=== PATIENT | male | born 1950 | race American Indian/Alaskan Native ===

== ENCOUNTER 2019-05-12 02:52 | Emergency (ER) | payer MEDICARE ==
[2019-05-12 03:04] VITALS: BP 159/78
== END 2019-05-12 05:30 | disposition left against medical advice (07) ==
LOC: ED 02:52
DX: J02.9 Acute pharyngitis, unspecified (principal); Z53.21 Procedure and treatment not carried out due to patient leaving prior to being seen by health care provider

== ENCOUNTER 2020-02-27 23:25 | Emergency (ER) | payer MEDICARE ==
[2020-02-27 23:36] VITALS: BP 160/84
== END 2020-02-28 01:30 | disposition left against medical advice (07) ==
LOC: ED 23:25
DX: K92.1 Melena (principal); R31.9 Hematuria, unspecified; Z53.21 Procedure and treatment not carried out due to patient leaving prior to being seen by health care provider

== ENCOUNTER 2020-03-21 21:42 | Emergency (ER) | payer MEDICARE ==
[2020-03-22 00:37] LABS: Hematocrit 46.8 % (35.5-45.6); Hemoglobin 15.8 gm/dl (11.8-15.2); Mean Corpuscular HGB Conc 34 % (32-34); Mean Corpuscular Volume 95 fl (84-94); Platelet Count 215 K/mm3 (140-440); Red Blood Count 4.91 M/mm3 (3.65-5.03); Red Cell Distribution Width 14.3 % (13.2-15.2)
[2020-03-22 00:56] LABS: Alanine Aminotransferase 20 units/L (7-56); Albumin 4.6 g/dL (3.9-5); BUN/Creatinine Ratio 15; Blood Urea Nitrogen 12 mg/dL (9-20); Calcium 9.8 mg/dL (8.4-10.2); Hemolysis Index 3
--- NOTE | 2020-03-22 01:27 | Emergency Department Report ---
ED Dizziness HPI - General Chief Complaint: Dizziness Stated Complaint: DIZZY Time Seen by Provider: 03/22/20 01:15 Source: patient Mode of arrival: Ambulatory Limitations: No Limitations - History of Present Illness Initial Comments: Patient is a 69-year-old male that presents emergency room with complaints of dizziness x1 month. Patient states his symptoms are intermittent. Patient states that it comes once or twice a day. Patient denies any symptoms at this time. Patient states his symptoms are better with rest and worse with exertion and movement. Patient denies chest pain or shortness of breath. Patient denies syncopal episode. Patient states that he has an appointment in April with his primary care. Patient dates he has history of high blood pressure. Patient states he takes his lisinopril every morning. Patient states his blood pressure goes up after he eats salt. Patient states he does not check his blood pressure at home. Patient denies recent travel. Patient denies recent international travel. Patient denies exposure to the novel coronavirus. Patient denies sick contacts. Patient denies fever and chills. Patient denies cough. Patient denies diarrhea. Patient denies coming in contact with anybody with symptoms of the novel coronavirus. MD Complaint: dizziness -: Sudden Timing: gradual onset Description: lightheadedness History of Same: Yes History of Trauma: No Severity: mild Improves With: remaining still, rest Worsens With: movement, exertion Associated Symptoms: denies other symptoms. denies: ataxia, chest pain, confusion, cough, diaphoresis, fever/chills, loss of appetite, malaise, rash, seizure, shortness of breath, syncope, weakness - Related Data Home Medications Medication Instructions Recorded Confirmed Last Taken AtorvaSTATin [Lipitor] 20 mg PO QHS 03/22/20 03/22/20 03/21/20 amLODIPine [Norvasc] 10 mg PO DAILY 03/22/20 03/22/20 03/21/20 lisinopriL [Zestril TAB] 40 mg PO QDAY 03/22/20 03/22/20 03/21/20 Previous Rx's Medication Instructions Recorded Last Taken Type hydroCHLOROthiazide [HCTZ] 25 mg PO QDAY 30 Days #30 tablet 03/22/20 Unknown Rx Allergies Allergy/AdvReac Type Severity Reaction Status Date / Time No Known Allergies Allergy Unverified 05/16/14 09:58 ED Review of Systems ROS: Stated complaint: DIZZY Other details as noted in HPI Constitutional: denies: chills, fever Eyes: denies: eye pain, eye discharge, vision change ENT: denies: ear pain, throat pain Respiratory: denies: cough, shortness of breath, wheezing Cardiovascular: denies: chest pain, palpitations Endocrine: no symptoms reported Gastrointestinal: denies: abdominal pain, nausea, diarrhea Genitourinary: denies: urgency, dysuria Musculoskeletal: denies: back pain, joint swelling, arthralgia Skin: denies: rash, lesions Neurological: denies: headache, weakness, paresthesias Psychiatric: denies: anxiety, depression Hematological/Lymphatic: denies: easy bleeding, easy bruising ED Past Medical Hx - Past Medical History Previous Medical History?: Yes Hx Hypertension: Yes Additional medical history: Hyperlipidemia - Surgical History Past Surgical History?: No - Social History Smoking Status: Former Smoker Substance Use Type: None - Medications Home Medications: Home Medications Medication Instructions Recorded Confirmed Last Taken Type AtorvaSTATin [Lipitor] 20 mg PO QHS 03/22/20 03/22/20 03/21/20 History amLODIPine [Norvasc] 10 mg PO DAILY 03/22/20 03/22/20 03/21/20 History hydroCHLOROthiazide [HCTZ] 25 mg PO QDAY 30 Days #30 tablet 03/22/20 Unknown Rx lisinopriL [Zestril TAB] 40 mg PO QDAY 03/22/20 03/22/20 03/21/20 History ED Physical Exam - General Limitations: No Limitations General appearance: alert, in no apparent distress - Head Head exam: Present: atraumatic, normocephalic - Eye Eye exam: Present: normal appearance, PERRL Pupils: Present: normal accommodation - ENT ENT exam: Present: mucous membranes moist - Neck Neck exam: Present: normal inspection - Respiratory Respiratory exam: Present: normal lung sounds bilaterally. Absent: respiratory distress - Cardiovascular Cardiovascular Exam: Present: regular rate, normal rhythm, normal heart sounds. Absent: systolic murmur, diastolic murmur, rubs, gallop - GI/Abdominal GI/Abdominal exam: Present: soft, normal bowel sounds - Rectal Rectal exam: Present: deferred - Extremities Exam Extremities exam: Present: normal inspection, full ROM, normal capillary refill. Absent: tenderness, pedal edema, calf tenderness - Back Exam Back exam: Present: normal inspection, full ROM - Neurological Exam Neurological exam: Present: alert, oriented X3, CN II-XII intact, normal gait. Absent: abnormal gait, motor sensory deficit - Psychiatric Psychiatric exam: Present: normal affect, normal mood - Skin Skin exam: Present: warm, dry, intact, normal color. Absent: rash ED Course Vital Signs 03/21/20 03/22/20 23:38 01:32 Temperature 98.4 F Pulse Rate 59 L 59 L Respiratory 18 Rate Blood Pressure 197/85 202/73 O2 Sat by Pulse 97 Oximetry - Reevaluation(s) Reevaluation #1: Initial evaluation done. Patient's on a manager scheduling and the patient's blood pressure is 200/70. Patient will be given 5 mg of Norvasc. Patient ambulatory in the ER without difficulty. 03/22/20 01:29 Reevaluation #2: The nurse went to give the patient the Norvasc and the patient states he actually takes lisinopril and Norvasc for his blood pressure. Norvasc canceled and will be given 0.2 mg of clonidine. Patient states he also takes atorvastatin for cholesterol. 03/22/20 01:36 Reevaluation #3: Patient's blood pressure is much better. Patient is ambulatory in ER. Patient states his dizziness has resolved. I discussed all results and clinical findings with patient. I discussed plan of care with patient. Patient agrees with plan of care. Patient is stable for discharge. Patient will be discharged home. Patient given discharge instructions. Patient voiced understanding of discharge instructions. 03/22/20 02:26 ED Medical Decision Making - Lab Data Result diagrams: 03/21/20 23:58 03/21/20 23:58 - EKG Data -: EKG Interpreted by Me EKG shows normal: sinus rhythm, axis, intervals, QRS complexes, ST-T waves Rate: bradycardia - Medical Decision Making Patient is a 69-year-old this emergency room with complaints of dizziness. Patient states it is intermittent and going on for 1 month. Patient found to have extreme elevated blood pressure. Patient's blood pressure was over 200. Patient given clonidine in his blood pressure improved dramatically. Patient already taking amlodipine and lisinopril as an outpatient. Patient's blood pressure responded well to treatment. Patient ambulatory and neurologically stable the entire time in the ER. Patient exam is benign. Patient had labs done which were essentially unremarkable. Patient given a prescription to be taken as an outpatient of hydrochlorothiazide 25 mg. Patient instructed to follow-up with his primary care soon as possible. Patient is stable for discharge. Patient discharged home. - Differential Diagnosis Hypertension, hypertensive urgency, uncontrolled blood pressure, dizziness Critical Care Time: Yes Critical care time in (mins) excluding proc time.: 35 Critical care attestation.: If time is entered above; I have spent that time in minutes in the direct care of this critically ill patient, excluding procedure time. Critical Care Time: 35 minutes. ED Disposition Clinical Impression: Hypertensive urgency, Dizziness Hypertension Qualifiers: Hypertension type: essential hypertension Qualified Code(s): I10 - Essential (primary) hypertension Disposition: TO HOME OR SELFCARE Is pt being admited?: No Does the pt Need Aspirin: No Condition: Stable Instructions: Hypertension (ED), Hypertension, Adult, [id number], Dizziness, [id number], Managing Your Hypertension Additional Instructions: Patient to follow-up with primary care in 2 to 3 days. 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 Patient to eat a low-salt diet. Patient to eat a heart healthy diet. Patient to monitor blood pressure at home. Patient to keep a blood pressure log. Patient to take blood pressure log to all follow-up appointments. Patient to continue amlodipine and lisinopril and atorvastatin. Patient to rest. Patient to increase water. Patient to avoid strenuous exercise or heavy lifting until cleared by [employer] and neurologist. Patient to take meds as directed. Patient to return to the ER if condition worsens, changes or new symptoms arise. Prescriptions: hydroCHLOROthiazide [HCTZ] 25 mg PO QDAY 30 Days #30 tablet Referrals: FAUSTO BALLESTEROS DO [Primary Care Provider] - 2-3 Days Time of Disposition: 02:48
[2020-03-22] MEDS: amLODIPine 5 MG TAB PO ONE ×2 (01:32→01:38)
[2020-03-22] MEDS ORDERED: cloNIDine 0.2 MG TAB PO ONE (01:36)
[2020-03-22 03:02] VITALS: BP 163/76
[2020-03-22 03:10] LABS: Total Cells Counted 100
[2020-03-22 03:11] LABS: Anisocytosis 1+; Platelet Estimate Consistent w Auto
== END 2020-03-22 02:55 | disposition home or self-care (01) ==
LOC: ED 21:42
DX: I16.0 Hypertensive urgency (principal); E78.49 Other hyperlipidemia
CPT/HCPCS: 36415; 80053; 85007; 85025; 93005

== ENCOUNTER 2020-03-25 08:15 | Emergency (ER) | payer MEDICARE ==
[2020-03-25 08:21] VITALS: BP 149/76
[2020-03-25 09:28] LABS: Hematocrit 44.4 % (35.5-45.6); Mean Corpuscular HGB Conc 34 % (32-34); Mean Corpuscular Volume 95 fl (84-94); Platelet Count 229 K/mm3 (140-440); Red Cell Distribution Width 14.2 % (13.2-15.2)
[2020-03-25 09:45] LABS: BUN/Creatinine Ratio 14; Blood Urea Nitrogen 13 mg/dL (9-20); Calcium 9.5 mg/dL (8.4-10.2); Hemolysis Index 3
[2020-03-25 11:34] LABS: Total Cells Counted 100
[2020-03-25 11:35] LABS: Platelet Estimate Consistent w Auto; RBC Morphology Normal
== END 2020-03-25 18:45 ==
LOC: ED 08:15
DX: R42 Dizziness and giddiness (principal); Z53.21 Procedure and treatment not carried out due to patient leaving prior to being seen by health care provider
CPT/HCPCS: 36415; 80048; 82962; 85007; 85025

== ENCOUNTER 2020-03-27 09:21 | Emergency (ER) | payer MEDICARE ==
[2020-03-27 10:34] LABS: Bilirubin,Urine NEG (Negative); Blood,Urine LG (Negative); Color,Urine Yellow (Yellow); Hyaline Casts,Urine 3 /LPF; Mucus,Urine FEW /HPF; Urobilinogen,Urine < 2.0 mg/dL (<2.0)
[2020-03-27 10:39] LABS: RBC,Urine > 182.0 /HPF (0.0-6.0)
[2020-03-27 10:41] LABS: Hemoglobin 15.5 gm/dl (11.8-15.2); Mean Corpuscular HGB Conc 34 % (32-34); Mean Corpuscular Volume 95 fl (84-94); Platelet Count 217 K/mm3 (140-440); Red Blood Count 4.84 M/mm3 (3.65-5.03); Red Cell Distribution Width 14.3 % (13.2-15.2)
[2020-03-27 11:08] LABS: BUN/Creatinine Ratio 12; Blood Urea Nitrogen 13 mg/dL (9-20); Calcium 9.7 mg/dL (8.4-10.2); Hemolysis Index 8
[2020-03-27 16:11] VITALS: BP 138/76
[2020-03-28] MEDS ORDERED: ACETAMINOPHEN 325 MG TAB PO ONE (00:07)
--- NOTE | 2020-03-28 00:08 | Emergency Department Report ---
ED General Adult HPI - General Chief complaint: Urogenital-Male Stated complaint: urinating blooad PUI?: Yes Time Seen by Provider: 03/27/20 23:34 Source: patient, RN notes reviewed, old records reviewed Mode of arrival: Ambulatory Limitations: No Limitations - History of Present Illness Initial comments: The patient was evaluated in the emergency department for symptoms described in the history of present illness. He/she was evaluated in the context of the global COVID-19 pandemic, which necessitated consideration that the patient might be at risk for infection with the virus that causes COVID-19. Institutional protocols and algorithms that pertain to the evaluation of patients at risk for COVID-19 are in a state of rapid change based on information released by regulatory bodies including the CDC and federal and sta te organizations. These policies and algorithms were followed during the patient's care in the emergency department. Please note that these policies, procedures and recommendations changed on a rapid basis. Patient is a pleasant 69-year-old gentleman with a history of obesity hypertension and high cholesterol, who presents to the ER today with a complaint of nontraumatic bloody urine, and left flank pain, present for approximately 1 day. He denies headache, neck pain, chest pain, vomiting, hematemesis and bright red blood per rectum, dysuria, testicular pain. He does not smoke, has not traveled to [place], or [place], and has not been exposed to aniline blue dye. He denies Covid symptomatology. Abdominal pain is throbbing and aching, dull, left flank. It does not radiate anywhere, increases with palpation, decreases with rest and position. -: Gradual, days(s) Location: abdomen Radiation: non-radiation Quality: other Consistency: other Improves with: other Worsens with: other Associated Symptoms: denies other symptoms - Related Data Home Medications Medication Instructions Recorded Confirmed Last Taken AtorvaSTATin [Lipitor] 20 mg PO QHS 03/22/20 03/22/20 03/21/20 amLODIPine [Norvasc] 10 mg PO DAILY 03/22/20 03/22/20 03/21/20 lisinopriL [Zestril TAB] 40 mg PO QDAY 03/22/20 03/22/20 03/21/20 Previous Rx's Medication Instructions Recorded Last Taken Type hydroCHLOROthiazide [HCTZ] 25 mg PO QDAY 30 Days #30 tablet 03/22/20 Unknown Rx Acetaminophen [Non-Aspirin Extra 500 mg PO Q6HR PRN #30 tablet 03/28/20 Unknown Rx Strength] Ibuprofen [Motrin] 600 mg PO Q8H PRN #30 tablet 03/28/20 Unknown Rx Morphine Sulfate [Morphine Sulfate 7.5 mg PO Q6HR PRN #10 tablet 03/28/20 Unknow n Rx IR] Allergies Allergy/AdvReac Type Severity Reaction Status Date / Time No Known Allergies Allergy Unverified 05/16/14 09:58 ED Review of Systems ROS: Stated complaint: RECTAL BLEEDING Other details as noted in HPI Comment: All other systems reviewed and negative Gastrointestinal: abdominal pain Genitourinary: hematuria. denies: testicular pain, testicular mass Musculoskeletal: denies: back pain ED Past Medical Hx - Past Medical History Hx Hypertension: Yes Additional medical history: Hyperlipidemia - Surgical History Past Surgical History?: No - Social History Smoking Status: Never Smoker - Medications Home Medications: Home Medications Medication Instructions Recorded Confirmed Last Taken Type AtorvaSTATin [Lipitor] 20 mg PO QHS 03/22/20 03/22/20 03/21/20 History amLODIPine [Norvasc] 10 mg PO DAILY 03/22/20 03/22/20 03/21/20 History hydroCHLOROthiazide [HCTZ] 25 mg PO QDAY 30 Days #30 tablet 03/22/20 Unknown Rx lisinopriL [Zestril TAB] 40 mg PO QDAY 03/22/20 03/22/20 03/21/20 History Acetaminophen [Non-Aspirin Extra 500 mg PO Q6HR PRN #30 tablet 03/28/20 Unknown Rx Strength] Ibuprofen [Motrin] 600 mg PO Q8H PRN #30 tablet 03/28/20 Unknown Rx Morphine Sulfate [Morphine Sulfate 7.5 mg PO Q6HR PRN #10 tablet 03/28/20 Unknown Rx IR] ED Physical Exam - General Limitations: No Limitations General appearance: alert, in no apparent distress - Head Head exam: Present: atraumatic, normocephalic - Eye Eye exam: Present: normal appearance, EOMI. Absent: nystagmus - ENT ENT exam: Present: normal exam, normal orophraynx, mucous membranes moist, normal external ear exam - Neck Neck exam: Present: normal inspection, full ROM. Absent: tenderness, meningismus - Respiratory Respiratory exam: Present: normal lung sounds bilaterally. Absent: respiratory distress, wheezes, rales, rhonchi, stridor, decreased breath sounds - Cardiovascular Cardiovascular Exam: Present: regular rate, normal rhythm, normal heart sounds. Absent: bradycardia, tachycardia, irregular rhythm, systolic murmur, diastolic murmur, rubs, gallop - GI/Abdominal GI/Abdominal exam: Present: soft, tenderness, normal bowel sounds, other (There is left upper quadrant/left flank/left lower quadrant tenderness with deep palpation.). Absent: distended, guarding, rebound, rigid, pulsatile mass - Rectal Rectal exam: Present: deferred - exam: Present: normal inspection, other (There is normal testicular lie. There is normal cremasteric reflex. There is no testicular tenderness. There is no testicular swelling). Absent: testicular tenderness, circumcision (Patient uncircumcised, foreskin retracts easily) External exam: Present: normal external exam - Extremities Exam Extremities exam: Present: normal inspection, full ROM, other (2+ pulses noted in the bilateral upper and lower extremities. There is no palpable cord. negative Homans sign. Muscular compartments are soft. The pelvis is stable.). Absent: tenderness, joint swelling, calf tenderness - Back Exam Back exam: Present: normal inspection, full ROM. Absent: tenderness, CVA tenderness (R), CVA tenderness (L), paraspinal tenderness, vertebral tenderness - Neurological Exam Neurological exam: Present: alert, normal gait, other (No facial droop. Tongue midline. Extraocular movements intact bilaterally. Facial sensation intact to light touch in V1, V2, V3 distribution bilaterally. 5 and a 5 strength in 4 extremities. Sensation intact to light touch in 4 extremities.). Absent: motor sensory deficit - Psychiatric Psychiatric exam: Present: normal affect, normal mood - Skin Skin exam: Present: warm, dry, intact, normal color. Absent: rash ED Course Vital Signs 03/27/20 09:26 Temperature 98.6 F Pulse Rate 87 Respiratory 16 Rate Blood Pressure 138/76 O2 Sat by Pulse 97 Oximetry ED Medical Decision Making - Lab Data Result diagrams: 03/27/20 09:40 03/27/20 09:40 Vital Signs 03/27/20 09:26 Temperature 98.6 F Pulse Rate 87 Respiratory 16 Rate Blood Pressure 138/76 O2 Sat by Pulse 97 Oximetry Lab Results 12/03/27/20 03/27/20 Range/Units 09:40 09:40 Unknown WBC 3.9 L (4.5-11.0) K/mm3 RBC 4.84 (3.65-5.03) M/mm3 Hgb 15.5 H (11.8-15.2) gm/dl Hct 46.0 H (35.5-45.6) % MCV 95 H (84-94) fl MCH 32 (28-32) pg MCHC 34 (32-34) % RDW 14.3 (13.2-15.2) % Plt Count 217 (140-440) K/mm3 Sodium 138 (137-145) mmol/L Potassium 3.8 (3.6-5.0) mmol/L Chloride 100.3 (98-107) mmol/L Carbon Dioxide 27 (22-30) mmol/L Anion Gap 15 mmol/L BUN 13 (9-20) mg/dL Creatinine 1.1 (0.8-1.3) mg/dL Estimated GFR > 60 ml/min BUN/Creatinine Ratio 12 % Glucose 133 H (75-100) mg/dL Calcium 9.7 (8.4-10.2) mg/dL Urine Color Yellow (Yellow) Urine Turbidity Slightly-cloudy (Clear) Urine pH 6.0 (5.0-7.0) Ur Specific [place] 1.015 (1.003-1.030) Urine Protein 30 mg/dl (Negative) mg/dL Urine Glucose (UA) Neg (Negative) mg/dL Urine Ketones Neg (Negative) mg/dL Urine Blood Lg (Negative) Urine Nitrite Neg (Negative) Urine Bilirubin Neg (Negative) Urine Urobilinogen < 2.0 (<2.0) mg/dL Ur Leukocyte Esterase Neg (Negative) Urine WBC (Auto) 38.0 H (0.0-6.0) /HPF Urine RBC (Auto) > 182.0 (0.0-6.0) /HPF Hyaline Casts 3 /LPF Urine Mucus Few /HPF - Radiology Data Radiology results: report reviewed, image reviewed CT ABDOMEN AND PELVIS WITHOUT CONTRAST HISTORY: left sided abd pain, hematuria. COMPARISON: None. TECHNIQUE: CT images of the abdomen and pelvis were obtained without administration of intravenous contrast. All CT scans at this location are performed using CT dose reduction for ALARA by means of automated exposure control. FINDINGS: Lungs/bones: There is minimal bibasilar atelectasis with otherwise clear lungs. Degenerative changes are present in the spine and pelvis with no acute osseous abnormality identified. Abdomen/pelvis: There is a 2 mm nonobstructive calyceal stone in the midpole left kidney. There is also a simple left renal cyst. The kidneys otherwise appear unremarkable. Urinary bladder demonstrates a rim calcified mass measuring 2.7 cm right of midline as seen on image 152 of series #2. The prostate is enlarged and indents the bladder base, as well. No gross bladder wall thickening identified. The liver, gallbladder, spleen, pancreas, adrenals, and proximal GI tract appear unremarkable except for a small hiatal hernia. No pelvic free fluid. There is mild colonic diverticulosis with nothing acute. A tiny fat-containing umbilical hernia is present. The appendix is normal. IMPRESSION: 1. Rim calcified mass in the urinary bladder as above. Recommend follow-up cystoscopy. 2. 2 mm nonobstructive calyceal stone in the left kidney and simple left renal cyst. Signer Name: Serge Guadarrama MD Signed: 03/28/2020 12:09 AM Workstation Name: [id number] - Medical Decision Making Differential diagnosis, including but not limited to: Genitourinary stone, genitourinary malignancy, hemorrhagic cystitis, renal colic Assessment and plan: 69-year-old gentleman, who was afebrile with reassuring vital signs, with a primary complaint of painless hematuria, and dull left flank pain. CT scan abdomen pelvis shows left calyceal stone, and bladder mass, which is calcium enhancing. He does not describe dysuria, or painful urination. Urinalysis findings are likely secondary to hematuria, likely secondary to calyceal stone, and bladder mass or stone. Patient observed in this department for hours without clinical decompensation, and has a soft benign abdomen on repeat examination after analgesia. Patient was extensively counseled on need t o follow-up with outpatient urology to exclude cancer, tumor, malignancy. He verbalizes understanding. He is suitable to follow-up with an outpatient urologist to complete a work-up. Critical care attestation.: If time is entered above; I have spent that time in minutes in the direct care of this critically ill patient, excluding procedure time. ED Disposition Clinical Impression: Bladder mass, Calyceal renal calculus, Left sided abdominal pain Hematuria Qualifiers: Hematuria type: unspecified type Qualified Code(s): R31.9 - Hematuria, unspecif ied Disposition: TO HOME OR SELFCARE Is pt being admited?: No Does the pt Need Aspirin: No Condition: Stable Additional Instructions: Please continue current outpatient medications. Take the pain medications as prescribed/needed and directed. If taking the morphine sulfate for pain, do not drive, consume alcohol, or make important decisions. Recommend that patient follow-up with a urologist within the next [address] scan of the abdomen pelvis found a calcified mass in the bladder. It is very closely to follow-up as an outpatient to exclude cancer, tumor, malignancy of the genitourinary system. Please return to the emergency room right away with new pain, worsened pain, migration of pain, projectile vomiting, change in mental status, confusion, inability to tolerate liquid feeds, fevers, chills, or any new, worsened or different symptoms not present on the initial emergency room evaluation. Please have a primary care doctor or urologist contact medical records department at this hospital to obtain copies of laboratory studies and CT scan results, and follow-up on nonemergent incidental abnormal findings. Cultures were sent today, and results will be available in the next 3 to 5 days. Please have a primary care doctor contact the medical records department to obtain culture results. Prescriptions: Morphine Sulfate [Morphine Sulfate IR] 7.5 mg PO Q6HR PRN #10 tablet PRN Reason: Pain , Severe (7-10) Ibuprofen [Motrin] 600 mg PO Q8H PRN #30 tablet PRN Reason: Pain Acetaminophen [Non-Aspirin Extra Strength] 500 mg PO Q6HR PRN #30 tablet PRN Reason: Pain , Severe (7-10) Referrals: FAUSTO BALLESTEROS DO [Primary Care Provider] - 3-5 Days MARIAA WIN MD [Staff Physician] - 3-5 Days [facility] [Provider Group] - 3-5 Days
--- NOTE | 2020-03-28 01:13 | Cat Scan Report ---
CT ABDOMEN AND PELVIS WITHOUT CONTRAST HISTORY: left sided abd pain, hematuria. COMPARISON: None. TECHNIQUE: CT images of the abdomen and pelvis were obtained without administration of intravenous co ntrast. All CT scans at this location are performed using CT dose reduction for ALARA by means of au tomated exposure control. FINDINGS: Lungs/bones: There is minimal bibasilar atelectasis with otherwise clear lungs. Degenerative changes are present in the spine and pelvis with no acute osseous abnormality identified. Abdomen/pelvis: There is a 2 mm nonobstructive calyceal stone in the midpole left kidney. There is a lso a simple left renal cyst. The kidneys otherwise appear unremarkable. Urinary bladder demonstrates a rim calcified mass measuring 2.7 cm right of midline as seen on image 152 of series #2. The prosta te is enlarged and indents the bladder base, as well. No gross bladder wall thickening identified. The liver, gallbladder, spleen, pancreas, adrenals, and proximal GI tract appear unremarkable except for a small hiatal hernia. No pelvic free fluid. There is mild colonic diverticulosis with nothing acute. A tiny fat-containing umbilical hernia is present. The appendix is normal. IMPRESSION: 1. Rim calcified mass in the urinary bladder as above. Recommend follow-up cystoscopy. 2. 2 mm nonobstructive calyceal stone in the left kidney and simple left renal cyst. Signer Name: Serge Guadarrama MD Signed: 03/28/2020 1:09 AM Workstation Name: [id number]
== END 2020-03-28 01:50 | disposition home or self-care (01) ==
LOC: ED 09:21
DX: N32.89 Other specified disorders of bladder (principal); N20.0 Calculus of kidney; R31.9 Hematuria, unspecified; I10 Essential (primary) hypertension; Z79.1 Long term (current) use of non-steroidal anti-inflammatories (NSAID); Z79.899 Other long term (current) drug therapy
CPT/HCPCS: 36415; 74176; 80048; 81001; 85027; 87086